=== PATIENT | male | born 1945 | race Caucasian/White ===

== ENCOUNTER 2017-07-20 19:38 | Inpatient (IN) | payer OTHER ==
[~2017-07-20] VITALS: Ht 177.8 cm; Wt 92.8 kg
[~2017-07-20 19:38] MED LIST: ADVIL,NUPRIN,M200 MG PO; BACTRIM,SEPT1 TABLET PO; CENTRUM SILVER1 EAC1 PO; DURAGESIC50 MCG TD; ENDOCET 5-3251 EACH PO; FLONASE16 G1 BOTH NARES; FLOVENT 11120 INHALA IH; LINEZOLID600 MG PO; ONDANSETRON HCL4 MG PO; PANTOPRAZOLE SO40 MG PO; PERCOCET 5/31 TABLET PO; TAMSULOSIN HCL0.4 MG PO; TYLENOL REGULA325 MG PO; VENTOLIN HFA18 GM IH
[2017-07-20 20:14] LABS: EOSINOPHIL (%) 3.4 % (0-5); EOSINOPHIL COUNT 0.3 K/uL (0-0.3); HEMATOCRIT 43.2 % (38.0-50.0); IMMATURE GRANULOCYTE (%) 0.4 % (0.0-0.7); INSTRUMENT ABS NEUTROPHIL CT 4.7 K/uL; LYMPHOCYTE COUNT 2.2 K/uL (1.0-2.8); MCH 31.7 PG (29.0-34.0); MCHC 33.8 G/DL (30.0-36.0); MCV 93.7 FL (86-99); MEAN PLAT.VOLUME 10.6 uM^3 (9.0-12.4); MONOCYTE (%) 11.9 % (3-12); NEUTROPHIL (%) 57.4 % (45-76); NEUTROPHIL COUNT 4.7 K/uL (1.8-6.4); PLATELET COUNT 184 K/uL (156-360); RBC DIS.WIDTH-CV 13.2 % (11.8-14.6); RBC DIS.WIDTH-SD 45.5 % (39-53); RED BLOOD COUNT 4.61 M/uL (4.00-5.50); WHITE BLOOD COUNT 8.1 K/uL (4.1-10.2)
[2017-07-20 20:23] LABS: CHLORIDE 109 mEq/L (99-109); POTASSIUM 4.2 mEq/L (3.7-5.4); SODIUM 142 mEq/L (136-147)
[2017-07-20 20:25] LABS: GLUCOSE 125 mg/dL (70-99)
[2017-07-20 20:26] LABS: ANION GAP 9 MEQ/L (2-14)
[2017-07-20 20:29] LABS: GFR ESTIMATE (CALCULATED) > 59 mL/min/ (58.99-99999)
[2017-07-20 20:30] LABS: UREA NITROGEN (BUN) 15 mg/dL (9-23)
[2017-07-20] MEDS ORDERED: CLEOCIN300 MG PO (21:58)
[2017-07-20] MEDS ORDERED: CELECOXIB200 MG PO (22:03)
[2017-07-20] MEDS ORDERED: ZYRTEC10 M3 PO (22:07)
[2017-07-20] MEDS ORDERED: PROBIOTIC1 EAC3 PO (22:09)
[2017-07-20] MEDS ORDERED: LUTEIN6 M1 PO (22:11)
[2017-07-21] VITALS (7 sets, daily range): BP systolic 123–150; BP diastolic 60–75
[2017-07-21 06:28] LABS: BASOPHIL COUNT 0.1 K/uL (0-0.1); EOSINOPHIL (%) 3.3 % (0-5); EOSINOPHIL COUNT 0.3 K/uL (0-0.3); HEMATOCRIT 41.3 % (38.0-50.0); IMMATURE GRANULOCYTE (%) 0.5 % (0.0-0.7); INSTRUMENT ABS NEUTROPHIL CT 5.1 K/uL; LYMPHOCYTE COUNT 1.6 K/uL (1.0-2.8); MCH 30.4 PG (29.0-34.0); MCHC 32.9 G/DL (30.0-36.0); MCV 92.4 FL (86-99); MONOCYTE (%) 11.4 % (3-12); MONOCYTE COUNT 0.9 K/uL (0-0.8); NEUTROPHIL (%) 64.4 % (45-76); NEUTROPHIL COUNT 5.1 K/uL (1.8-6.4); PLATELET COUNT 192 K/uL (156-360); RBC DIS.WIDTH-CV 13.1 % (11.8-14.6); RED BLOOD COUNT 4.47 M/uL (4.00-5.50)
[2017-07-21 06:46] LABS: ANION GAP 8 MEQ/L (2-14); CHLORIDE 109 MEQ/L (99-109); GFR ESTIMATE (CALCULATED) > 59 mL/min/ (58.99-99999); GLUCOSE 111 mg/dL (70-99); POTASSIUM 4.1 MEQ/L (3.7-5.4); SAMPLE HEMOLYSIS CHECK 0; SAMPLE ICTERIC CHECK 0; SAMPLE LIPEMIA CHECK 0; SODIUM 141 MEQ/L (136-147); UREA NITROGEN (BUN) 13 mg/dL (9-23)
[2017-07-22 07:32] VITALS: BP 108/59
[2017-07-22] MEDS ORDERED: LINEZOLID600 MG PO (12:02)
== END 2017-07-22 14:15 | disposition home or self-care (01) | DRG 603 ==
LOC: EME 19:38 → 2EAST 23:05 → EDOF 23:05 → ENRESERV 23:08 → 2EAST 23:46
PROVIDERS: Hospitalist
DX: L03.114 Cellulitis of left upper limb (principal); M70.22 Olecranon bursitis, left elbow; K21.9 Gastro-esophageal reflux disease without esophagitis; M19.022 Primary osteoarthritis, left elbow; J45.909 Unspecified asthma, uncomplicated; S51.012A Laceration without foreign body of left elbow, initial encounter; W18.2XXA Fall in (into) shower or empty bathtub, initial encounter; N40.0 Benign prostatic hyperplasia without lower urinary tract symptoms; Y93.E1 Activity, personal bathing and showering; Z86.14 Personal history of Methicillin resistant Staphylococcus aureus infection; Z68.29 Body mass index [BMI] 29.0-29.9, adult; E66.9 Obesity, unspecified; Z87.891 Personal history of nicotine dependence; Z87.442 Personal history of urinary calculi; Z86.61 Personal history of infections of the central nervous system; Z82.49 Family history of ischemic heart disease and other diseases of the circulatory system
CPT/HCPCS: 73080; 80048; 80202; 83605; 85025; 87040; 87070; 87075; 87077; 87147; 87186; 87205; 94640; 94640 76; 99281; 99285; A6260; J0295; J1650; J3370; J7050